=== PATIENT | female | born 1950 | race Caucasian/White ===

== ENCOUNTER → 2018-01-10 00:14 | Outpatient (CLI) | payer MEDICARE, OTHER, SELFPAY ==
--- NOTE | 2018-01-10 06:40 | MERGEMPI_ITS ---
*[facility]* *[facility]* [address] [place] [address] Myocardial Perfusion Imaging - SPECT Duy protocol Date of study: 01/10/2018 *PATIENT PRESENTATION* Height: 175.3cm (69in) Blood Pressure: Weight: 94.5kg (208lb) BSA: 2.17m^2 Referring physician: Janeth Schulz Ordering physician: Michelle Vann Impressions: Normal perfusion by Tc99m Sestamibi Imaging. Summary: 1. Myocardial perfusion imaging: No myocardial perfusion defects noted. 2. The calculated left ventricular ejection fraction after stress: 58%. 3. Stress: The target heart rate was achieved. Indication: R07.89. History: Patient's presenting symptoms: asymptomatic. REASON FOR VISIT: PATIENT PRESENTED TO EMERGENCY ROOM ON 12/30/17 AFTER TWO EPISODES OF SYNCOPAL EVENTS WHILE STANDING FOR A PROLONGED PERIOD OF TIME, ONE EPISODE RESULTING IN PATIENT HITTING THE BACK OF HER HEAD. PATIENT DENIES ANY OTHER SYMPTOMS ASSOCIATED WITH SYNCOPE OTHER THAN GENERALLY NOT FEELING WELL. PATIENT HAS BEEN EXPERIENCING DIZZINESS WITH PROLONGED STANDING OVER THE PAST YEAR. ON A FOLLOW UP APPOINTMENT WITH PCP ON 01/04/18, PATIENT REPORTS ANOTHER NEAR SYNCOPAL EVENT AND PRESENCE OF CHEST PAIN. SINCE SYNCOPAL EPISODE PATIENT HAS BEEN EXPERIENCING INTERMITTENT NONEXERTIONAL STERNAL CHEST PRESSURE OF VARYING DURATION, WORSE WHILE LYING IN SUPINE POSITION. INCREASE IN FATIGUE AND OCCASIONAL PALPITATIONS ARE ALSO REPORTED BY PATIENT SINCE SYNCOPAL EPISODE. 12/31/17 ECHOCARDIOGRAM RESULTS: EJECTION FRACTION WAS 60-65%. 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 THE ASCENDING AORTA WAS MILDLY DILATED. PAST MEDICAL HISTORY: GERD, HYPERTENSION, MIGRAINE HEADACHES, PRIOR HISTORY OF SYNCOPE. FAMILY HISTORY: FATHER, HEART DISEASE. SMOKING STATUS: FORMER SMOKER, QUIT 1978. EXERCISE ROUTINE: 1HR AT GYM WITH RESISTANCE BANDS AND WEIGHTS 2-3X/WEEK. Risk factors: Family history of coronary artery disease. Dyslipidemia. Cholesterol: 186mg/dl. HDL: 57mg/dl. LDL: 127mg/dl. Triglycerides: 53mg/dl. ALLERGIES: FISH CONTAINING PRODUCTS, CODEINE, HYDROCODONE, IODINE, LATEX, LISINOPRIL, PNEUMOCOCALL VACCINE, SHELLFISH DERIVED. MEDICATIONS: ASPIRIN 81MG, DAILY. FLUTICASONE PROPIONATE 1-2 SPRAYS, PRN. LOSARTAN/HYDROCHLOROTHIAZIDE 100-25MG, DAILY. OMEPRAZOLE 20MG, DAILY. RIZATRIPTAN BENZOATE 10MG, PRN. Imaging Technique: Protocol: Duy protocol. Acquisition: Gated SPECT; 1 day - rest/stress. The patient was imaged in the supine position. Attenuation correction used. Isotope administration: - Rest. Tc[99m]-sestamibi. Dose: 10mCi. Injection time: 11:25 AM. Injection to stress time: 00:45. - Stress. Tc[99m]-sestamibi. Dose: 32mCi. Injection time: 01:35 PM. 1-2 min before end of exercise Baseline ECG: SINUS RHYTHM. HEART RATE 75 BPM. Stress protocol: + +---+ + !Stage !HR !BP (mmHg) ! + +---+ + !Baseline supine !75 !122/90 (101)! + +---+ + !Baseline standing !86 !126/92 (103)! + +---+ + !Stage I; 1.7mph, 10degrees; 3 min!141!184/92 (123)! + +---+ + !Peak stress !146! ! + +---+ + !Immediate post stress !132!182/84 (117)! + +---+ + !Recovery; 3 min !98 !174/82 (113)! + +---+ + !Recovery; 6 min !92 !150/70 (97) ! + +---+ + * Stress results: Maximal heart rate during stress was 146bpm (97% of maximal predicted heart rate). The maximal predicted heart rate was 151bpm. The target heart rate was achieved. The rate-pressure product for the peak heart rate and blood pressure was 16574xd Hg/min. Stress ECG: TREADMILL PORTION OF EXERCISE STRESS TEST ENDED IN 3MIN 25SEC DUE TO PATIENT FATIGUE. HYPERTENSIVE BLOOD PRESSURE RESPONSE TO EXERCISE. APPROPRIATE HEART RATE RESPONSE TO EXERCISE. MAX HEART RATE 146 BPM, 96% OF TARGET. APPROXIMATE METS ACHIEVED 5.12. NO ANGINA REPORTED. OCCASIONAL PREMATURE ATRIAL CONTRACTION NOTED. UPWARD SLOPING ST SEGMENT DEPRESSION NOTED IN LEADS II, III, AVF, V3, V4, V5, AND V6. ST SEGMENT CHANGES RETURNED TO BASELINE BY MINUTE FOUR OF RECOVERY. MILDLY DIMINISHED FUNCTIONAL CAPACITY. Myocardial perfusion: Imaging information: gated. No myocardial perfusion defects noted. Ventricular Function (Wall Motion): The calculated left ventricular ejection fraction after stress: 58%. Study data: Tab Osei MD supervised and was readily available during the procedure. This study was interpreted by [facility]. Study status: Routine. Consent: The risks, benefits, and alternatives to the procedure were explained to the patient and informed consent was obtained. Procedure: Initial setup. A baseline ECG was recorded. Surface ECG leads and manual cuff blood pressure measurements were monitored. Heart sounds: Normal. Lung sounds: Normal. Treadmill exercise testing was performed using the Duy protocol. Study completion: All catheters inserted during the procedure were removed. The patient tolerated the procedure well and was discharged from the lab. Discharge: The patient left the laboratory in stable condition. Birthdate: Patient birthdate: 1950. Sex: Gender: female. Study date: Study date: 01/10/2018. Study time: 06:40 AM. Electronically signed by Tab Osei MD 01/10/2018 16:27
[2018-01-10 15:07] LABS: Hemoglobin A1C 5.3 % (4.5-6.2)
== END ==
PROVIDERS: PCP Family Medicine; Visit Provider Family Medicine
DX: R07.89 Other chest pain (principal); R55 Syncope and collapse; R00.2 Palpitations; I10 Essential (primary) hypertension; E78.5 Hyperlipidemia, unspecified; Z87.891 Personal history of nicotine dependence; R73.09 Other abnormal glucose; Z82.49 Family history of ischemic heart disease and other diseases of the circulatory system
CPT/HCPCS: 78452; 93017; 36415; 93016; 93018; 83036

== ENCOUNTER → 2018-01-12 01:05 | Outpatient (CLI) | payer MEDICARE, OTHER, SELFPAY ==
--- NOTE | 2018-01-12 09:10 | DI.REPORT_ITS ---
SYMPTOM/DIAGNOSIS: SYNCOPE, R55 MRA OF THE NECK AND BRAIN: The study was carried out without contrast. Motion artifact degrades image quality. The right common carotid and right internal carotid artery is unremarkable. There is no stenosis or occlusion. The right external carotid artery is unremarkable. The right vertebral artery terminates in the V3 segment. The left common carotid artery is unremarkable. The left internal carotid artery is unremarkable. The left external carotid artery is unremarkable. The left vertebral artery is unremarkable. The soft tissues are intact. SUMMARY: The right vertebral artery is smaller in size and terminates in the V3 segment.
--- NOTE | 2018-01-12 16:19 | DI.VRAD_ITS ---
EXAM: MR Angiography Neck Without Intravenous Contrast CLINICAL HISTORY: 67 years old, female; Signs and symptoms; Other: Syncope TECHNIQUE: Magnetic resonance angiography images of the neck without intravenous contrast. MIP reconstructed images were created and reviewed. COMPARISON: HEAD^MRA COW 01/12/2018 9:35 AM FINDINGS: Artifacts: Motion artifact degrading the images. Right common carotid artery: Unremarkable. No significant stenosis. No dissection or occlusion. Right internal carotid artery: Unremarkable. Extracranial segment is patent with no significant stenosis. No dissection or occlusion. Right external carotid artery: Unremarkable. No occlusion. Right vertebral artery: The right vertebral artery terminates in the V3 segment. Left common carotid artery: Unremarkable. No significant stenosis. No dissection or occlusion. Left internal carotid artery: Unremarkable. Extracranial segment is patent with no significant stenosis. No dissection or occlusion. Left external carotid artery: Unremarkable. No occlusion. Left vertebral artery: Unremarkable. No significant stenosis. No dissection or occlusion. Soft tissues: Unremarkable as visualized. CAROTID STENOSIS REFERENCE USING NASCET CRITERIA: % ICA stenosis = (1 - narrowest ICA diameter/diameter of distal cervical ICA) x 100. Mild - <50% stenosis. Moderate - 50-69% stenosis. Severe - 70-94% stenosis. Near occlusion - 95-99% stenosis. Occluded - 100% stenosis. IMPRESSION: The right vertebral artery is smaller in size and terminates in the V3 segment. Occlusion versus dissection cannot be excluded. MRA with contrast fat suppression images is suggested for further evaluation. Dictated and Authenticated by: Domenic Bernal MD. Ordering:VISHAL WILLIAMSON MD
--- NOTE | 2018-01-12 16:30 | DI.VRAD_ITS ---
EXAM: MR Angiography Head Without Intravenous Contrast CLINICAL HISTORY: 67 years old, female; Signs and symptoms; Other: Syncope TECHNIQUE: Magnetic resonance angiography images of the head without intravenous contrast. MIP reconstructed images were created and reviewed. COMPARISON: MRI - BRAIN WO CONTRAST 12/31/2017 12:35 AM FINDINGS: Right internal carotid artery: No acute findings. Intracranial segment is patent with no significant stenosis. No aneurysm. Right anterior cerebral artery: Unremarkable. No occlusion or significant stenosis. No aneurysm. Right middle cerebral artery: Unremarkable. No occlusion or significant stenosis. No aneurysm. Right posterior cerebral artery: Unremarkable. No occlusion or significant stenosis. No aneurysm. Right vertebral artery: Not visualized Left internal carotid artery: No acute findings. Intracranial segment is patent with no significant stenosis. No aneurysm. Left anterior cerebral artery: Unremarkable. No occlusion or significant stenosis. No aneurysm. Left middle cerebral artery: Unremarkable. No occlusion or significant stenosis. No aneurysm. Left posterior cerebral artery: origin of the left posterior cerebral artery. No occlusion or significant stenosis. No aneurysm. Left vertebral artery: Not visualized in this study. Basilar artery: Unremarkable. No occlusion or significant stenosis. No aneurysm. IMPRESSION: The right vertebral artery is not visualized in the intracranial portion. No occlusion or aneurysm of the intracranial arteries. Dictated and Authenticated by: Domenic Bernal MD. Ordering:VISHAL WILLIAMSON MD
== END ==
PROVIDERS: PCP Family Medicine; Visit Provider Family Medicine
DX: R55 Syncope and collapse (principal)
CPT/HCPCS: 70544; 70547; 93225

== ENCOUNTER → 2018-01-12 03:28 | Outpatient (CLI) | payer MEDICARE, SELFPAY ==
--- NOTE | 2018-02-02 10:16 | ZIOP_ITS ---
ZIO PATCH REPORT DATE OF DICTATION February 02, 2018 STUDY INDICATION Syncope. REQUESTING PROVIDER Michelle Vann M.D. FINDINGS The patient was monitored for 13 days and 23 hours. COMMENTS The predominant underlying rhythm was sinus rhythm. Average heart rate in sinus. 74 beats per minute. Range 50 to 141 beats per minute. There was rare ectopy. There were 10 episodes of supraventricular tachycardia. Average heart rate 123 beats per minute. Range 84 to 203 beats per minute. The longest episode lasted 8.4 seconds. There was nocturnal bradycardia. There were no pauses greater than 3 seconds. There was no higher degree heart block. There were 34 patient events. 3 events correlated with SVT, all other events did not correlate with arrhythmias. FINAL INTERPRETATION Bursts of SVT, at times symptomatic. Oswaldo García M.D. MICHAEL/[facility] T - 02/02/2018
== END ==
PROVIDERS: PCP Family Medicine; Visit Provider Family Medicine
DX: R55 Syncope and collapse (principal); I47.1 Supraventricular tachycardia; R00.1 Bradycardia, unspecified
CPT/HCPCS: 93225

== ENCOUNTER 2018-02-02 09:00 | Outpatient (CLI) | payer MEDICARE, OTHER, SELFPAY | END 2018-02-02 09:20 | PROVIDERS: PCP Family Medicine; Visit Provider Student in an Organized Health Care Education/Training Program | DX: R55 Syncope and collapse (principal); I47.2 Ventricular tachycardia | CPT/HCPCS: 0298T ==

== ENCOUNTER 2018-10-20 10:55 | Outpatient (CLI) | payer MEDICARE, OTHER, SELFPAY ==
[2018-10-20 12:43] LABS: ALT 32 U/L (12-78); AST 21 U/L (15-37); Albumin 3.9 g/dL (3.4-5.0); Alkaline Phosphatase 84 U/L (46-116); BUN 21 mg/dL (7-18); Bilirubin, Total 0.4 mg/dL (0.2-1.0); CREATININE 0.69 mg/dL (0.55-1.02); Calcium 9.8 mg/dL (8.5-10.1); Chloride 102 mmol/L (98-107); Glucose 92 mg/dL (70-100); Sodium 140 mmol/L (136-145); Total Protein 7.4 g/dL (6.4-8.2)
== END 2018-10-20 11:15 ==
PROVIDERS: PCP Family Medicine; Visit Provider Family Medicine
DX: I10 Essential (primary) hypertension (principal)
CPT/HCPCS: 36415; 80053

== ENCOUNTER 2018-11-18 09:48 | Outpatient (CLI) | payer MEDICARE, OTHER, SELFPAY | END 2018-11-18 10:08 | PROVIDERS: PCP Family Medicine; Visit Provider Internal Medicine Cardiovascular Disease | DX: I47.9 Paroxysmal tachycardia, unspecified (principal); H83.2X2 Labyrinthine dysfunction, left ear; G43.909 Migraine, unspecified, not intractable, without status migrainosus; I10 Essential (primary) hypertension; R55 Syncope and collapse | CPT/HCPCS: 99204; 99215; 93005; 93010 ==

== ENCOUNTER → 2019-03-20 09:37 | Outpatient (BNVA) | payer MEDICARE, OTHER, SELFPAY | PROVIDERS: PCP Family Medicine; Referring Provider Family Medicine; Visit Provider Internal Medicine Cardiovascular Disease | DX: I47.1 Supraventricular tachycardia (principal); R55 Syncope and collapse; I10 Essential (primary) hypertension; H83.2X2 Labyrinthine dysfunction, left ear | CPT/HCPCS: 99205; 99215 ==

== ENCOUNTER 2019-05-30 08:25 | Outpatient (CLI) | payer MEDICARE, OTHER, SELFPAY ==
--- NOTE | 2019-05-30 10:30 | DI.RAD_ITS ---
EXAM: XR CHEST 2V PA LATERAL INDICATION: cough, R05. COMPARISON: CHEST 2 VIEWS PA,LAT from 04/28/2017 TECHNIQUE: 2D digital imaging was performed. FINDINGS: Heart size and pulmonary vasculature are within normal limits. The lungs are clear. There is no ple ural effusion or pneumothorax. Age-appropriate degenerative changes are seen in the spine. IMPRESSION: No acute pulmonary process.
== END 2019-05-30 08:45 ==
PROVIDERS: PCP Family Medicine; Visit Provider Family Medicine
DX: R05 Cough (principal)
CPT/HCPCS: 71046

== ENCOUNTER 2019-11-14 01:43 | Outpatient (CLI) | payer MEDICARE, OTHER, SELFPAY ==
--- NOTE | 2019-11-14 12:24 | DI.MAMMO_ITS ---
EXAM: MG MAMMO SCREENING CLINICAL HISTORY: screening, Z12.39 TECHNIQUE: Bilateral full field digital CC and MLO mammographic images were obtained with 3D tomosyn thesis and utilizing computer aided detection (CAD). COMPARISON: Available for comparison. FINDINGS: Masses/Architectural Distortion: There is asymmetric breast tissue in the medial aspect of the right breast. This is more prominent compared to the prior examinations. Microcalcifications: No suspicious pleomorphic-type are seen. Skin Thickening/Nipple Retraction: None. IMPRESSION: 1. Asymmetric breast tissue in the medial aspect of the right breast. 2. This should be further evaluated with spot compression views and right breast ultrasound. BI-RADS Category 0 - Assessment Incomplete: Need additional imaging evaluation Breast Density - Category B - Scattered areas of fibroglandular density A negative radiographic report should not delay biopsy if a dominant or clinically suspicious mass is present. Up to ten percent of cancers are not identified on mammography. A negative report may reinforce clinical impression. Adenosis and dense breasts may obscure an underlying neoplasm. False positive reports average 6 to 10%. Patient will receive a letter notifying them of these results.
== END 2019-11-14 02:03 ==
PROVIDERS: PCP Family Medicine; Visit Provider Family Medicine
DX: Z12.31 Encounter for screening mammogram for malignant neoplasm of breast (principal); R92.8 Other abnormal and inconclusive findings on diagnostic imaging of breast
CPT/HCPCS: 77063; 77067

== ENCOUNTER 2019-11-14 02:44 | Outpatient (CLI) | payer MEDICARE, OTHER, SELFPAY ==
[2019-11-14 12:26] LABS: ALT 28 U/L (14-59); AST 19 U/L (15-37); Albumin 3.7 g/dL (3.4-5.0); Alkaline Phosphatase 81 U/L (46-116); Anion Gap 8.2 mmol/L (3-11); BUN 17 mg/dL (7-18); Bilirubin, Total 0.5 mg/dL (0.2-1.0); CO2 27.8 mmol/L (21.0-32.0); CREATININE 0.72 mg/dL (0.55-1.02); Calcium 9.4 mg/dL (8.5-10.1); Calculated LDL 112 mg/dL (<100); Chloride 106 mmol/L (98-107); Cholesterol 172 mg/dL (<200); Glucose 88 mg/dL (74-106); HDL Cholesterol 49 mg/dL (40-60); Potassium 4.4 mmol/L (3.5-5.1); Sodium 142 mmol/L (136-145); Total Protein 6.8 g/dL (6.4-8.2); Triglyceride 58 mg/dL (<150)
== END 2019-11-14 03:04 ==
PROVIDERS: PCP Family Medicine; Visit Provider Family Medicine
DX: G43.909 Migraine, unspecified, not intractable, without status migrainosus (principal); H83.2X2 Labyrinthine dysfunction, left ear; I10 Essential (primary) hypertension
CPT/HCPCS: 36415; 80053; 80061; 83735

== ENCOUNTER 2019-11-22 01:57 | Outpatient (CLI) | payer MEDICARE, OTHER, SELFPAY ==
--- NOTE | 2019-11-22 | DI.MAMMO_ITS ---
EXAM: MG MAMMO SCREEN CALL BACK UNI CLINICAL HISTORY: F/U MAMMO, ASYMMETRIC BREAST TISSUE MEDIAL ASPECT RT BREAST TECHNIQUE: Spot compression views including C- View and tomographic imaging were performed. COMPARISON: 2012 through 14 November 2019. FINDINGS: The breasts are composed of scattered fibroglandular densities, Breast Density category B. No suspicious masses or suspicious microcalcifications are seen. No persistent abnormality is seen on the additional views performed. The findings are consistent wit h overlying fibroglandular tissue. There has been no significant change from prior exams. IMPRESSION: BIRADS Category 1, Negative Mammogram. Yearly screening mammography is recommended. Breast Density Category B, scattered fibroglandular densities.
== END 2019-11-22 02:17 ==
PROVIDERS: PCP Family Medicine; Visit Provider Family Medicine
DX: Z12.31 Encounter for screening mammogram for malignant neoplasm of breast (principal); R92.8 Other abnormal and inconclusive findings on diagnostic imaging of breast; N64.59 Other signs and symptoms in breast
CPT/HCPCS: 77063; 77067

== ENCOUNTER → 2020-02-12 09:20 | Outpatient (BNVA) | payer MEDICARE, OTHER, SELFPAY | PROVIDERS: PCP Family Medicine; Referring Provider Family Medicine; Visit Provider Internal Medicine Cardiovascular Disease | DX: I47.1 Supraventricular tachycardia (principal); I10 Essential (primary) hypertension; R42 Dizziness and giddiness | CPT/HCPCS: 99214 ==

== ENCOUNTER 2020-08-19 19:55 | Outpatient (CLI) | payer MEDICARE, OTHER, SELFPAY ==
--- NOTE | 2020-08-19 09:15 | DI.RAD_ITS ---
EXAM: XR KNEE RT 3V AP,LAT,MYRNA CLINICAL HISTORY: r knee pain after falling M25.561 PAIN RT KNEE. TECHNIQUE: 2D digital imaging was performed. COMPARISON: No exams were available for comparison FINDINGS: BONES: There is a lucency seen in the medial tibial spine with possible extension into the lateral as pect of the medial tibial plateau suspicious for nondisplaced fracture. No bony destructive lesion i s seen. JOINTS: The knee is normally aligned. There is a small joint effusion. Degenerative changes are seen in the knee characterized by periarticular spurring particularly in the medial femoral tibial and pa tellofemoral joint. SOFT TISSUE: Normal. IMPRESSION: Findings suspicious for nondisplaced fracture involving the medial tibial spine in the medial tibial plateau as described above. A CT scan of the knee should be considered for further evaluation. DATA REPOSITORY: RADIATION DOSE DELIVERED:
== END 2020-08-19 20:15 ==
PROVIDERS: PCP Family Medicine; Visit Provider Family Medicine
DX: M25.561 Pain in right knee (principal); R93.7 Abnormal findings on diagnostic imaging of other parts of musculoskeletal system; M25.461 Effusion, right knee
CPT/HCPCS: 73562

== ENCOUNTER 2020-08-20 01:15 | Outpatient (CLI) | payer MEDICARE, OTHER, SELFPAY ==
--- NOTE | 2020-08-20 08:10 | DI.CT_ITS ---
EXAM: CT LOWER EXTREMITY RT WO CLINICAL HISTORY: see XRAY - ? medial tibeal spine fx,RT KNEE PAIN,M25.561 TECHNIQUE: COMPARISON: CR XR KNEE RT 3V AP,LAT,MYRNA from 08/19/2020 FINDINGS: CT examination of the right knee was performed to evaluate questionable findings on yesterday's radio graphs of the knee. CT confirms a vertically oriented nondisplaced fracture extending through the in tercondylar eminence of the tibia from anterior to posterior. No additional fracture identified. Th ere is a small to moderate knee joint effusion. IMPRESSION: RADIATION DOSE DELIVERED: 218.43mGy.cm Total DLP RADIATION OPTIMIZATION: All CT scans at this facility use at least one of these dose optimization te chniques: automated exposure control; mA and/or kV adjustment per patient size (includes targeted exa ms where dose is matched to clinical indication); or iterative reconstruction.
== END 2020-08-20 01:35 ==
PROVIDERS: PCP Family Medicine; Visit Provider Family Medicine
DX: M25.561 Pain in right knee (principal); M25.461 Effusion, right knee; S82.144A Nondisplaced bicondylar fracture of right tibia, initial encounter for closed fracture
CPT/HCPCS: 73700

== ENCOUNTER → 2020-08-21 08:26 | Outpatient (BNVA) | payer MEDICARE, OTHER, SELFPAY | PROVIDERS: PCP Family Medicine; Referring Provider Family Medicine; Visit Provider Physician Assistant Surgical | DX: S82.291A Other fracture of shaft of right tibia, initial encounter for closed fracture (principal); W19.XXXA Unspecified fall, initial encounter | CPT/HCPCS: 99213 ==

== ENCOUNTER 2020-08-27 09:08 | Outpatient (CLI) | payer MEDICARE, OTHER, SELFPAY ==
--- NOTE | 2020-08-27 08:30 | DI.RAD_ITS ---
EXAM: XR KNEE RT 3V AP,LAT,MYRNA CLINICAL HISTORY: F/U FRACTURE. TECHNIQUE: 2D digital imaging was performed. COMPARISON: CR XR KNEE RT 3V AP,LAT,MYRNA from 08/19/2020 FINDINGS: BONES: The fracture through the intercondylar eminence is less well visualized on the current examina tion. No new fracture or dislocation is identified. No bony destructive lesion is seen. JOINTS: The knee is normally aligned. There is a small joint effusion. Tricompartment degenerative c hanges are again noted. SOFT TISSUE: Normal. IMPRESSION: DATA REPOSITORY: RADIATION DOSE DELIVERED:
== END 2020-08-27 09:09 | disposition home or self-care (01) ==
LOC: DIORS 09:09
PROVIDERS: PCP Family Medicine; Referring Provider Family Medicine; Visit Provider Physician Assistant
DX: S82.291D Other fracture of shaft of right tibia, subsequent encounter for closed fracture with routine healing (principal); W19.XXXD Unspecified fall, subsequent encounter
CPT/HCPCS: 73562; 99213

== ENCOUNTER 2020-09-24 10:13 | Outpatient (CLI) | payer MEDICARE, OTHER, SELFPAY ==
--- NOTE | 2020-09-24 10:00 | DI.RAD_ITS ---
Exam(s) XR KNEE RT 2V AP,LAT EXAM: XR KNEE RT 2V AP,LAT CLINICAL HISTORY: F/U TECHNIQUE: COMPARISON: CR XR KNEE RT 3V AP,LAT,MYRNA from 08/27/2020 FINDINGS: Two views were obtained. The cartilaginous joint spaces appear fairly well maintained. There is mil d marginal osteophyte formation involving all 3 joints of the knee. No other significant bony or sof t tissue abnormality seen. No significant effusion identified on the lateral view. IMPRESSION: RADIATION DOSE DELIVERED: Total DLP
== END 2020-09-24 10:14 | disposition home or self-care (01) ==
LOC: DIORS 10:13
PROVIDERS: PCP Family Medicine; Referring Provider Family Medicine; Visit Provider Student in an Organized Health Care Education/Training Program
DX: S82.114D Nondisplaced fracture of right tibial spine, subsequent encounter for closed fracture with routine healing (principal); W19.XXXD Unspecified fall, subsequent encounter
CPT/HCPCS: 99213; 99214; 73560

== ENCOUNTER 2020-11-20 10:39 | Outpatient (CLI) | payer MEDICARE, OTHER, SELFPAY ==
--- NOTE | 2020-11-20 10:30 | DI.RAD_ITS ---
Exam(s) XR KNEE RT 2V AP,LAT EXAM: XR KNEE RT 2V AP,LAT CLINICAL HISTORY: f/u. TECHNIQUE: 2D digital imaging was performed. COMPARISON: CR XR KNEE RT 2V AP,LAT from 09/24/2020 FINDINGS: Stable degenerative changes are seen in the right knee. Bones are normally mineralized. No joint ef fusion is seen. The nondisplaced tibial fracture is not well seen on the current examination. IMPRESSION: DATA REPOSITORY: RADIATION DOSE DELIVERED:
== END 2020-11-20 10:40 | disposition home or self-care (01) ==
LOC: DIORS 10:39
PROVIDERS: PCP Family Medicine; Referring Provider Family Medicine; Visit Provider Student in an Organized Health Care Education/Training Program
DX: M25.561 Pain in right knee (principal); S82.114D Nondisplaced fracture of right tibial spine, subsequent encounter for closed fracture with routine healing; X58.XXXD Exposure to other specified factors, subsequent encounter
CPT/HCPCS: 99213; 73560

== ENCOUNTER 2021-05-06 02:34 | Outpatient (CLI) | payer MEDICARE, OTHER, SELFPAY ==
[2021-05-06 14:45] LABS: *AMPHETAMINES SCREEN URINE Negative (Negative); *BARBITURATES SCREEN URINE Negative (Negative); *BENZODIAZEPINES SCREEN URINE Negative (Negative); Cannabinoids THC Negative (Negative); Cocaine Screen,Urine Negative (Negative); METHADONE URINE SCREEN Negative (Negative); OPIATES URINE SCREEN Negative (Negative)
[2021-05-06 14:46] LABS: Tricyclic Antidepressants Negative (Negative)
[2021-05-08 15:34] LABS: Measles IgG Antibody Positive (See Note)
[2021-05-08 15:41] LABS: Rubella IgG Ab (UVM) Positive (See Note)
[2021-05-08 20:54] LABS: Index Value 0.34 (0.00-0.79); Mumps Ab, IgG Positive; Mumps Ab, IgM Negative (Negative)
== END 2021-05-06 02:35 | disposition home or self-care (01) ==
LOC: LBO 02:34
PROVIDERS: PCP Family Medicine; Visit Provider Family Medicine
DX: Z02.1 Encounter for pre-employment examination (principal); I47.1 Supraventricular tachycardia; Z11.59 Encounter for screening for other viral diseases; Z02.89 Encounter for other administrative examinations
CPT/HCPCS: 36415; 80307; 83735; 86735; 86762; 86765

== ENCOUNTER → 2022-01-27 01:59 | Outpatient (CLI) | payer MEDICARE, OTHER, SELFPAY ==
--- NOTE | 2022-01-27 07:30 | DI.MAMMO_ITS ---
Exam(s) MAMMO SCREENING EXAM: MAMMO SCREENING CLINICAL HISTORY: screening,z12.39 TECHNIQUE: Mammograms were interpreted according to the usual protocol including computer analysis w [employer] CAD system, tomosynthesis and C-view imaging. COMPARISON: 2012 through 2019 FINDINGS: The breasts are composed of scattered fibroglandular densities, Breast Density category B. No suspicious masses or suspicious microcalcifications are seen. An area of scarring is again noted in the medial right breast. No skin thickening or abnormal axillary lymph nodes are seen. There has been no significant change from prior exams. IMPRESSION: BI-RADS Cat 2 - Benign Findings Yearly screening mammography is recommended. Breast Density - Category B, scattered fibroglandular densities. A negative radiographic report should not delay biopsy if a dominant or clinically suspicious mass is present. Up to ten percent of cancers are not identified on mammography. A negative report may reinforce clinical impression. Adenosis and dense breasts may obscure an underlying neoplasm. False positive reports average 6 to 10%. Patient will receive a letter notifying them of these results.
== END ==
PROVIDERS: PCP Family Medicine; Visit Provider Family Medicine
DX: Z12.31 Encounter for screening mammogram for malignant neoplasm of breast (principal)
CPT/HCPCS: 77063; 77067

== ENCOUNTER 2022-02-02 03:23 | Outpatient (CLI) | payer MEDICARE, OTHER, SELFPAY ==
[2022-02-02 12:31] LABS: ALT 29 U/L (14-59); AST 23 U/L (15-37); Albumin 3.5 g/dL (3.4-5.0); Alkaline Phosphatase 73 U/L (46-116); Anion Gap 11.2 mmol/L (3-11); BUN 20 mg/dL (7-18); Bilirubin, Total 0.5 mg/dL (0.2-1.0); CO2 25.8 mmol/L (21.0-32.0); CREATININE 0.7 mg/dL (0.55-1.02); Calcium 9.3 mg/dL (8.5-10.1); Chloride 106 mmol/L (98-107); Estimated GFR 91.26 (mL/min/1.73m2); Glucose 90 mg/dL (74-106); Potassium 3.9 mmol/L (3.5-5.1); Sodium 143 mmol/L (136-145); TSH (W/Ref FT4) 1.32 uIU/mL (0.36-3.74); Total Protein 7.3 g/dL (6.4-8.2)
== END 2022-02-02 03:24 | disposition home or self-care (01) ==
LOC: LOS 03:23
PROVIDERS: PCP Family Medicine; Visit Provider Family Medicine
DX: I10 Essential (primary) hypertension (principal)
CPT/HCPCS: 36415; 80053; 84443

== ENCOUNTER 2023-05-07 02:42 | Outpatient (CLI) | payer MEDICARE, OTHER, SELFPAY ==
[2023-05-07 14:14] LABS: ALT 28 U/L (14-59); AST 17 U/L (15-37); Albumin 3.3 g/dL (3.4-5.0); Alkaline Phosphatase 76 U/L (46-116); Anion Gap 4.7 mmol/L (3-11); BUN 15 mg/dL (7-18); Bilirubin, Total 0.5 mg/dL (0.2-1.0); CO2 30.3 mmol/L (21.0-32.0); CREATININE 0.9 mg/dL (0.55-1.02); Calcium 9.6 mg/dL (8.5-10.1); Chloride 105 mmol/L (98-107); Estimated GFR 67.08 (mL/min/1.73m2); Glucose 108 mg/dL (74-106); Potassium 3.7 mmol/L (3.5-5.1); Sodium 140 mmol/L (136-145); Total Protein 6.9 g/dL (6.4-8.2)
== END 2023-05-07 02:43 | disposition home or self-care (01) ==
PROVIDERS: PCP Family Medicine; Visit Provider Family Medicine
DX: I10 Essential (primary) hypertension (principal)
CPT/HCPCS: 36415; 80053

== ENCOUNTER 2024-09-26 04:01 | Outpatient (CLI) | payer MEDICARE, OTHER, SELFPAY ==
[2024-09-26 13:07] LABS: ALT 21 U/L (14-59); AST 19 U/L (15-37); Albumin 3.8 g/dL (3.4-5.0); Alkaline Phosphatase 84 U/L (46-116); Anion Gap 8.8 mmol/L (3-11); BUN 16 mg/dL (7-18); Bilirubin, Total 0.5 mg/dL (0.2-1.0); CO2 28.2 mmol/L (21.0-32.0); CREATININE 0.7 mg/dL (0.55-1.02); Calcium 9.8 mg/dL (8.5-10.1); Chloride 105 mmol/L (98-107); Estimated GFR 90.14 (mL/min/1.73m2); Glucose 98 mg/dL (74-106); Potassium 3.9 mmol/L (3.5-5.1); Sodium 142 mmol/L (136-145); Total Protein 7.3 g/dL (6.4-8.2)
[2024-09-26 22:09] LABS: Vitamin B12 346 pg/mL (193-986)
[2024-09-27 11:51] LABS: Hepatitis C Ab w Rflx HCV PCR Negative (Negative)
== END 2024-09-26 04:02 | disposition home or self-care (01) ==
LOC: LOS 04:01
PROVIDERS: PCP Family Medicine; Visit Provider Family Medicine
DX: I10 Essential (primary) hypertension (principal); Z11.59 Encounter for screening for other viral diseases; R26.89 Other abnormalities of gait and mobility
CPT/HCPCS: 36415; 80053; 86803; 82607

== ENCOUNTER → 2024-09-27 13:27 | Outpatient (BNVA) | payer MEDICARE, OTHER, SELFPAY | PROVIDERS: PCP Family Medicine; Referring Provider Family Medicine; Visit Provider Podiatrist | DX: M79.672 Pain in left foot (principal); B07.0 Plantar wart; L84 Corns and callosities; Q82.8 Other specified congenital malformations of skin | CPT/HCPCS: 17110 ==

== ENCOUNTER 2024-10-26 01:12 | Outpatient (CLI) | payer MEDICARE, OTHER, SELFPAY ==
--- NOTE | 2024-10-26 10:15 | DI.DEXA_ITS ---
Exam(s) XR DEXA BONE DENSITY W/WO ELSA EXAM: XR DEXA BONE DENSITY W/WO ELSA CLINICAL HISTORY: asymptomatic postmenopausal state, Z78.0, postmenopausal TECHNIQUE: Routine DEXA evaluation of the lumbar spine, hip, or forearm. COMPARISON: No exams were available for comparison FINDINGS: Performed on a Hologic unit. Lateral image: No fractures evident. Lumbar Spine total T-score: -0.3 which is within normal limits. Hip total T-score:-1.3 which is osteopenia range. Independent reading at the level of the femoral neck yields T-score of -1.7 which is osteopenia range. Forearm total T-score: -2.8 which is osteoporosis range. IMPRESSION: Bone mineral density measures in the osteopenia range for the hip. Bone mineral density measures in the normal range for the lumbar spine. Bone mineral density measures in the osteoporosis range for the forearm-wrist. Fracture risk is low in the lumbar spine but higher in hip and wrist levels. Note: Any spine fracture indicates 5x risk for subsequent spine fracture and 2x risk for subsequent hip fracture. World Health Organization criteria for BMD interpretation classify patients: Normal...... T- Score at or above -1.0 Osteopenic... T- Score between -1.0 and -2.5 Osteoporosis... T-Score at or below -2.5
== END 2024-10-26 01:32 ==
PROVIDERS: PCP Family Medicine; Visit Provider Family Medicine
DX: M81.0 Age-related osteoporosis without current pathological fracture (principal); Z78.0 Asymptomatic menopausal state
CPT/HCPCS: 77080

== ENCOUNTER → 2024-11-01 10:26 | Outpatient (BNVA) | payer MEDICARE, OTHER, SELFPAY | PROVIDERS: PCP Family Medicine; Referring Provider Family Medicine; Visit Provider Podiatrist | DX: L84 Corns and callosities (principal); Q82.8 Other specified congenital malformations of skin; B07.0 Plantar wart; M79.672 Pain in left foot | CPT/HCPCS: 17110 ==

== ENCOUNTER 2024-11-22 02:37 | Outpatient (CLI) | payer MEDICARE, OTHER, SELFPAY ==
--- NOTE | 2024-11-22 07:30 | DI.MAMMO_ITS ---
Exam(s) MAMMO SCREENING EXAM: MAMMO SCREENING CLINICAL HISTORY: screening,Z12.39 TECHNIQUE: Mammograms were interpreted according to the usual protocol including computer analysis with CAD system, tomosynthesis and C-view imaging. COMPARISON: 2015 through 2021 FINDINGS: The breasts are composed of scattered fibroglandular densities, Breast Density category B. No suspicious masses or suspicious microcalcifications are seen. No skin thickening or abnormal axillary lymph nodes are seen. There has been no significant change from prior exams. IMPRESSION: BI-RADS Category 1, Negative mammogram Yearly screening mammography is recommended. Breast Density - Category B - There are scattered areas of fibroglandular density. Breast density Category C or D implies that the patient has dense breast tissue. Dense breast tissue can make it harder to find cancer on a mammogram. Dense breast tissue is also associated with an increased risk of breast cancer. This information about the result of the mammogram report was provided to the patient to raise their awareness. Use this report when you speak with the patient about their risks for breast cancer, which includes their family history. At that time, you may recommend additional screening tests (Ultrasound or MRI) as these tests may add significant information. A negative radiographic report should not delay biopsy if a dominant or clinically suspicious mass is present. Up to ten percent of cancers are not identified on mammography. A negative report may reinforce clinical impression. Adenosis and dense breasts may obscure an underlying neoplasm. False positive reports average 6 to 10%. Patient will receive a letter notifying them of these results.
== END 2024-11-22 02:57 ==
LOC: DI 02:37
PROVIDERS: PCP Family Medicine; Visit Provider Family Medicine
DX: Z12.31 Encounter for screening mammogram for malignant neoplasm of breast (principal); R92.323 Mammographic fibroglandular density, bilateral breasts
CPT/HCPCS: 77063; 77067